=== PATIENT | male | born 1940 | race Caucasian/White ===

== ENCOUNTER 2021-09-24 20:43 | Emergency (ER) | payer MEDICARE ==
[2021-09-24] MEDS ORDERED: TYLENOL 325 MG PO STA (20:57)
[2021-09-24] MEDS ORDERED: Sodium Chloride 0.9% 1000 ML 1,000 ML IV STA (20:57)
[2021-09-24] MEDS ORDERED: Sodium Chloride 0.9% 1000 ML 1,000 ML ONE (21:06)
[2021-09-24] MEDS ORDERED: TYLENOL 325 MG ONE (21:06)
--- NOTE | 2021-09-24 21:08 | ERPHSYRPT ---
- History of Present Illness Time Seen by Provider: 09/24/21 21:05 Source: patient, family Exam Limitations: physical impairment Patient Subjective Stated Complaint: states "He has been confused for the past 3 days and he has been having chills. He says he has been dizzy too." Triage Nursing Assessment: Pt ambulatory to bed by self, pt alert to self and place only, pt is confused and unable to my questions my questions d/t confusion. is answering most questions, pt is febrile with a temperature of 100.7, says pt has been having chills but unknown of having fevers at home, pt's other vitals wnl, pt skin color flushed Physician History: states "He has been confused for the past 3 days and he has been having chills. He says he has been dizzy too." pt is confused and unable to my questions my questions d/t confusion. is answering most questions, pt is febrile with a temperature of 100.7, says pt has been having chills but unknown of having fevers at home Timing/Duration: day(s) (3 days) Severity: moderate Associated Symptoms: chills, fever, malaise, weakness Allergies/Adverse Reactions: No Known Drug Allergies Allergy (Verified 09/24/21 20:49) Home Medications: Lisinopril/Hydrochlorothiazide [Lisinopril-Hctz 10-12.5 mg Tab] 1 tab PO DAILY 09/24/21 [History] Travel Risk - International Travel Have you traveled outside of the country in past 3 weeks: No - Coronavirus Screening Are you exhibiting any of the following symptoms?: Yes Symptoms: Fever Close contact with a COVID-19 positive Pt in past 14-21 Days: No - Vaccine Status Have you recieved a Covid-19 vaccination: No - Review of Systems Constitutional: Fever, Chills, Lethargy, Malaise, Weakness Eyes: No Symptoms Ears, Nose, & Throat: No Symptoms Respiratory: No Cough, No Dyspnea Cardiac: No Chest Pain, No Edema, No Syncope Abdominal/Gastrointestinal: No Abdominal Pain, No Nausea, No Vomiting, No Diarrhea Genitourinary Symptoms: No Dysuria Musculoskeletal: No Back Pain, No Neck Pain Skin: No Rash Neurological: No Dizziness, No Focal Weakness, No Sensory Changes Psychological: No Symptoms Endocrine: No Symptoms All Other Systems: Reviewed and Negative - Past Medical History Pertinent Past Medical History: Yes Neurological History: No Pertinent History ENT History: No Pertinent History Cardiac History: Hypertension Respiratory History: No Pertinent History Endocrine Medical History: No Pertinent History Musculoskeletal History: No Pertinent History GI Medical History: No Pertinent History History: No Pertinent History Psycho-Social History: No Pertinent History Male Reproductive Disorders: No Pertinent History - Past Surgical History Past Surgical History: Yes Neuro Surgical History: No Pertinent History Cardiac: No Pertinent History Respiratory: No Pertinent History Gastrointestinal: No Pertinent History Genitourinary: No Pertinent History Musculoskeletal: Orthopedic Surgery Male Surgical History: No Pertinent History Other Surgical History: foot surgery - Social History Smoking Status: Former smoker Exposure to second hand smoke: No Drug Use: none Patient Lives Alone: No - Nursing Vital Signs Nursing Vital Signs: Initial Vital Signs Temperature 100.7 F 09/24/21 20:51 Pulse Rate 95 H 09/24/21 20:51 Respiratory Rate 18 09/24/21 20:51 Blood Pressure 136/79 09/24/21 20:51 O2 Sat by Pulse Oximetry 93 L 09/24/21 20:51 Pain Scale Pain Intensity 0 - Physical Exam General Appearance: mild distress, alert Eye Exam: PERRL/EOMI, eyes nml inspection Ears, Nose, Throat Exam: normal ENT inspection, TMs normal, pharynx normal, moist mucous membranes Neck Exam: normal inspection, non-tender, supple, full range of motion Respiratory Exam: normal breath sounds, lungs clear, No respiratory distress Cardiovascular Exam: regular rate/rhythm, normal heart sounds, normal peripheral pulses Gastrointestinal/Abdomen Exam: soft, normal bowel sounds, No tenderness, No mass Back Exam: normal inspection, normal range of motion, No CVA tenderness, No vertebral tenderness Extremity Exam: normal inspection, normal range of motion, pelvis stable Neurologic Exam: alert, oriented x 3, cooperative, normal mood/affect, sensation nml, No motor deficits Skin Exam: normal color, warm, dry, No rash Lymphatic Exam: No adenopathy SpO2 Interpretation: borderline oxygenation SpO2: 93 O2 Delivery: Room Air - Course Nursing assessment & vital signs reviewed: Yes - Radiology Exams Chest X-ray Interpretation: Reviewed by me, Negative - CT Exams Head CT Interpretation: Tele-radiologist Report, No/Intracranial Hemorrhag Ordered Tests: Active Orders 24 hr Category Date Time Status EKG-ER Only STAT Care 09/24/21 20:57 Active CHEST 2 VIEWS (PA AND LAT) Stat Exams 09/24/21 21:32 Taken HEAD WITHOUT CONTRAST [CT] Stat Exams 09/24/21 21:32 Taken CBC W DIFF Stat Lab 09/24/21 21:10 Completed CMP Stat Lab 09/24/21 21:10 Completed CULTURE,URINE Stat Lab 09/24/21 21:10 Received UA W/RFX CULTURE Stat Lab 09/24/21 21:10 Completed Medication Summary Discontinued Medications Generic Name Dose Route Start Last Admin Trade Name Angie PRN Reason Stop Dose Admin Acetaminophen 975 mg 09/24/21 20:57 09/24/21 21:07 Acetaminophen 325 Mg Tablet PO 09/24/21 20:58 975 mg STAT STA Administration Acetaminophen Confirm 09/24/21 21:06 Acetaminophen 325 Mg Tablet Administered 09/24/21 21:07 Dose 975 mg .ROUTE .STK-MED ONE Sodium Chloride 1,000 mls @ 999 mls/hr 09/24/21 20:57 09/24/21 22:07 Sodium Chloride 0.9% 1000 Ml IV 09/24/21 21:57 Infused .Q1H1M STA Infusion Sodium Chloride Confirm 09/24/21 21:06 Sodium Chloride 0.9% 1000 Ml Administered 09/24/21 21:07 Dose 1,000 mls @ ud .ROUTE .STK-MED ONE Ceftriaxone Sodium/Dextrose 1 g in 50 mls @ 100 mls/hr 09/24/21 21:44 09/24/21 22:20 Rocephin 1 Gm-D5w 50 Ml Bag IV 09/24/21 22:13 Infused STAT STA Infusion Ceftriaxone Sodium/Dextrose Confirm 09/24/21 21:50 Rocephin 1 Gm-D5w 50 Ml Bag Administered 09/24/21 21:51 Dose 1 g in 50 mls @ ud IV .STK-MED ONE Lab/Rad Data: Laboratory Result Diagrams 09/24/21 21:10 09/24/21 21:10 Laboratory Results 09/24/21 09/24/21 09/24/21 Range/Units 21:10 21:10 21:10 WBC 10.1 (4.0-10.5) x10^3/uL RBC 4.30 (4.1-5.6) x10^6/uL Hgb 13.3 (12.5-18.0) g/dL Hct 40.1 L (42-50) % MCV 93.3 (78-100) fL MCH 30.9 (26-32) pg MCHC 33.2 (32-36) g/dL RDW 12.7 (11.5-14.0) % Plt Count 160 (150-450) x10^3/uL MPV 9.5 (7.5-11.0) fL Gran % 80.6 H (36.0-66.0) % Immature Gran % (Auto) 0.3 (0.00-0.4) % Nucleat RBC Rel Count 0.0 (0.00-0.1) % Eos # (Auto) 0.03 (0-0.5) x10^3/uL Immature Gran # (Auto) 0.03 (0.00-0.03) x10^3u/L Absolute Lymphs (auto) 1.16 (1.0-4.6) x10^3/uL Absolute Monos (auto) 0.73 (0.0-1.3) x10^3/uL Absolute Nucleated RBC 0.00 (0.00-0.01) x10^3u/L Lymphocytes % 11.5 L (24.0-44.0) % Monocytes % 7.2 (0.0-12.0) % Eosinophils % 0.3 (0.00-5.0) % Basophils % 0.1 (0.0-0.4) % Absolute Granulocytes 8.13 H (1.4-6.9) x10^3/uL Basophils # 0.01 (0-0.4) x10^3/uL Sodium 132 L (137-145) mmol/L Potassium 4.2 (3.5-5.1) mmol/L Chloride 96 L (98-107) mmol/L Carbon Dioxide 29 (22-30) mmol/L Anion Gap 11.6 (5-15) MEQ/L BUN 27 H (9-20) mg/dL Creatinine 1.23 (0.66-1.25) mg/dL Estimated GFR > 60.0 ML/MIN Glucose 122 H (74-106) mg/dL Calcium 8.8 (8.4-10.2) mg/dL Total Bilirubin 0.80 (0.2-1.3) mg/dL AST 26 (17-59) U/L ALT 23 (0-50) U/L Alkaline Phosphatase 90 (38-126) U/L Serum Total Protein 6.9 (6.3-8.2) g/dL Albumin 3.8 (3.5-5.0) g/dL Urinalys Dipstick Clnc MAIN LAB Urine Color YELLOW (YELLOW) Urine Appearance CLEAR (CLEAR) Urine pH 5.5 (5-6) Ur Specific [place] 1.020 (1.005-1.025) POC Urine Protein Conf NEGATIVE (Negative) Urine Ketones NEGATIVE (NEGATIVE) Urine Nitrite NEGATIVE (NEGATIVE) Urine Bilirubin NEGATIVE (NEGATIVE) Urine Urobilinogen 2 (0-1) mg/dL Urine Leukocytes SMALL (NEGATIVE) Urine WBC (Auto) 16-25 (0-5) /HPF Urine RBC (Auto) 3-5 (0-2) /HPF U Epithel Cells (Auto) NONE (FEW) /HPF Urine Bacteria (Auto) NONE SEEN (NEGATIVE) /HPF Urine RBC NEGATIVE (0-5) [place] Urine Mucus (Auto) SLIGHT (NEGATIVE) /HPF Ur Culture Indicated? YES Urine Glucose NEGATIVE (NEGATIVE) mg/dL - Progress Progress: improved Counseled pt/family regarding: lab results, diagnosis, need for follow-up, rad results - Departure Departure Disposition: Home Clinical Impression: Urinary tract infection Qualifiers: Urinary tract infection type: acute cystitis Hematuria presence: without hematuria Qualified Code(s): N30.00 - Acute cystitis without hematuria Fever Qualifiers: Fever type: unspecified Qualified Code(s): R50.9 - Fever, unspecified Condition: Stable Critical Care Time: No Referrals: FAINA BALLESTEROS MD [Primary Care Provider] - Follow up/PCP as directed Instructions: Urinary Tract Infections in Adults, Delirium (Confusion) (DC), Dementia (DC) Additional Instructions: Discharge/Care Plan ARELI CANO was seen on 09/24/21 in the Emergency Room. The patient was counseled regarding Diagnosis,Lab results, Imaging studies, need for follow up and when to return to the Emergency Room. Prescriptions given: Discharge Note I have spoken with the patient and/or caregivers. I have explained the patient's condition, diagnosis and treatment plan based on the information available to me at this time. I have answered the patient's and/or caregiver's questions and addressed any concerns. The patient and/or caregivers have as good understanding of the patient's diagnosis, condition and treatment plan as can be expected at this point. The vital signs have been stable. The patient's condition is stable and appropriate for discharge from the emergency department. The patient will pursue further outpatient evaluation with the primary care physician or other designated or consulting physician as outlined in the discharge instructions. The patient and/or caregivers are agreeable to this plan of care and follow-up instructions have been explained in detail. The patient and/or caregivers have received these instruction. The patient/and or caregivers are aware that any significant change in condition or worsening of symptoms should prompt an immediate return to this or the closest emergency department or call 911. ARELI CANO was seen on 09/24/21 n the Emergency Room. At that time you were treated for an emergent condition, during your visit Laboratory, Radiology and/or other procedures may have been ordered. It is very important that you follow-up with your Primary Care Physician FAINA BALLESTEROS within the next 24-48 hours to review your Emergency Room visit and the final results of testing that was ordered. Some test results such as Urine Cultures, Blood Cultures, and other cultures if ordered will not be finalized for 24-48 hours. If you do not have a Primary Care Provider please call the medical records department at [phone] to obtain a copy of your results or you may sign into our patient portal to obtain these results by visiting us @ [email or web address] and completing the following steps: 1. Click on the Patient Portal link 2. Click the Patient Self Enrollment Link to complete the enrollment form and entering your 3. Once the enrollment form is completed you will receive an email with a temporary ID and password at the email address you provided. 4. Next choose a user name and password. Your user name must be at least 4 characters long and your password must be at least 4 characters long. 5. Choose a security question from the list and provide your answer to the question. If you already have signed into the Health Portal you may access your Health Care Information 23/10 by the following steps: 1. Login to our website @ [email or web address] 2. Enter your original user name and password. FAQS The [facility] Health Portal is an online tool that contains your Lab Results, Radiology Reports, Visit History, Discharge Instructions and Health Summary Lab and Radiology Results will not be available for 72 hours on the portal. The Portal is a secure site, passwords are encryted and URLs are re-written so they cannot be copied and pasted. You and authorized family members are the only ones who can access your Portal. Also there is a timeout feature that protects your information if you leave the Portal page open. If you have technical difficulty please use the Contact Us link on the page this will allow you to submit any questions you have regarding the Portal or you may contact the Medical Record Department at [phone] ext [phone]. Prescriptions: Ciprofloxacin [Cipro 500 MG] 500 mg PO BID #15 tablet
[2021-09-24 21:15] LABS: Absolute Neutrophil Ct (ANC) 8.13 x10^3/uL (1.4-6.9); Basophil (Absolute #) 0.01 x10^3/uL (0-0.4); Eosinophil % 0.3 % (0.00-5.0); Eosinophil (Absolute #) 0.03 x10^3/uL (0-0.5); Hematocrit 40.1 % (42-50); Hemoglobin 13.3 g/dL (12.5-18.0); Lymphocyte (Absolute #) 1.16 x10^3/uL (1.0-4.6); Lymphocytes % 11.5 % (24.0-44.0); Mean Cell Volume 93.3 fL (78-100); Mean Corpuscular Hemoglobin 30.9 pg (26-32); Mean Corpuscular Hgb Concent. 33.2 g/dL (32-36); Mean Platelet Volume 9.5 fL (7.5-11.0); Monocyte (Absolute #) 0.73 x10^3/uL (0.0-1.3); Monocytes % 7.2 % (0.0-12.0); Neutrophil % 80.6 % (36.0-66.0); Platelet Count 160 x10^3/uL (150-450); Red Cell Distribution Width 12.7 % (11.5-14.0); White Blood Count 10.1 x10^3/uL (4.0-10.5)
[2021-09-24 21:27] LABS: ALBUMIN 3.8 g/dL (3.5-5.0); ALKALINE PHOSPHATASE 90 U/L (38-126); ANION GAP 11.6 MEQ/L (5-15); BLOOD UREA NITROGEN 27 mg/dL (9-20); CHLORIDE 96 mmol/L (98-107); Calcium 8.8 mg/dL (8.4-10.2); Carbon Dioxide 29 mmol/L (22-30); Creatinine 1 1.23 mg/dL (0.66-1.25); EST GLOMERULAR FILTRATION RATE > 60.0 ML/MIN; Glucose 122 mg/dL (74-106); Potassium 4.2 mmol/L (3.5-5.1); SGOT/AST 26 U/L (17-59); SGPT/ALT 23 U/L (0-50); SODIUM 132 mmol/L (137-145); Total Protein 6.9 g/dL (6.3-8.2)
[2021-09-24] MEDS ORDERED: ROCEPHIN 1 Gm-D5w 50 ml Bag** 1 G/50 ML IVPB IV STA (21:44)
[2021-09-24] MEDS ORDERED: ROCEPHIN 1 Gm-D5w 50 ml Bag** 1 G/50 ML IVPB IV ONE (21:50)
[2021-09-24 21:58] LABS: Mucus SLIGHT /HPF (NEGATIVE)
[2021-09-24 21:59] LABS: Appearance CLEAR (CLEAR); Bilirubin NEGATIVE (NEGATIVE); Dipstick done @ ? MAIN LAB; Glucose NEGATIVE (NEGATIVE); Ketones NEGATIVE (NEGATIVE); Nitrite NEGATIVE (NEGATIVE); Ph 5.5 (5-6); Protein,Urine Dip NEGATIVE (Negative); RBC NEGATIVE Ery/ul (0-5); Urobilinogen 2 mg/dL (0-1)
[2021-09-24 22:00] LABS: Bacteria NONE SEEN /HPF (NEGATIVE); Urine Cultured Indicated? YES
[2021-09-24 22:11] VITALS: BP 111/84
[2021-09-24 22:34] LABS: INFLUENZA A NEGATIVE (NEGATIVE); INFLUENZA B NEGATIVE (NEGATIVE); RESPIRATORY SYNCTIAL VIRUS NEGATIVE (Negative); SARS-CoV-2 Xpert Express NEGATIVE (NEGATIVE)
[2021-09-24 22:45] VITALS: PULSE 69; O2SAT 95
--- NOTE | 2021-09-25 07:21 | XRAY ---
Indication: Confusion. Fever and cough. Multiple contiguous axial images obtained through the head without contrast. Comparison: October 15, 2012. Progressive age-appropriate global atrophy with moderate periventricular degenerative micro-ischemia bilaterally. No acute intracranial hemorrhage, abnormal extra-axial fluid collection, or mass effect. Fourth ventricle is midline without hydrocephalus. Bony calvarium intact. Visualized paranasal sinuses and mastoid air cells are clear. Impression: Nonacute senile brain. Comment: Preliminary interpretation made by [facility]. No critical discrepancy.
--- NOTE | 2021-09-25 07:21 | XRAY ---
Indication: Fever and cough. Comparison: None PA/lateral chest hyperinflated and clear. Heart not enlarged with mild arteriosclerotic and tortuous descending aorta. Bony thorax intact with osteopenia, mild degenerative changes, and mild scoliosis. Impression: Nonacute chest with chronic features.
== END 2021-09-24 22:56 | disposition home or self-care (01) ==
LOC: ED 20:43
DX: N30.00 Acute cystitis without hematuria (principal); R50.9 Fever, unspecified; R41.0 Disorientation, unspecified; R42 Dizziness and giddiness; I10 Essential (primary) hypertension; Z79.899 Other long term (current) drug therapy; Z28.310 Unvaccinated for COVID-19
CPT/HCPCS: 0241U; 36000; 36415; 70450; 71046; 80053; 81015; 85025; 87086; 93005; 96360; 96365; 99285; J0696; A9270-GY

== ENCOUNTER 2022-09-19 19:26 | Emergency (ER) | payer MEDICARE ==
[2022-09-19 20:30] LABS: Appearance Clear (Clear); Bacteria None Seen /HPF (None Seen); Bilirubin Negative (Negative); Blood Negative (Negative); Epithelial Cells None Seen /HPF (None Seen); Glucose, Urine Negative (Negative); Hyaline Casts NONE SEEN /LPF (0-2); Ketones Negative (Negative); Leukocyte Esterase Large (Negative); Nitrite Negative (Negative); Protein,Urine Dip Negative (Negative); RBC 0-2 /HPF (0-5); Specific Gravity <=1.005 (1.005-1.030); WBC 21-50 /HPF (0-5)
--- NOTE | 2022-09-19 20:40 | ERPHSYRPT ---
- History of Present Illness Time Seen by Provider: 09/19/22 20:35 Source: patient Exam Limitations: no limitations Patient Subjective Stated Complaint: daughter states that pt has fell twice today. daughter states pt was sweaty today. daughter states pt has ate very little today. Triage Nursing Assessment: pt ambulated into the er; pt is axo x1; c/o fall; pt denies pain; no abnormal gait present; clear lung sounds in all lobes; clear heart tone; pupils 2 mm and PERRL; blood glucose on arrival was 118; skin PDW; no respiratory distress present; strong conor student recruiter and pushes; vitals wnl Physician History: Patient is 81-year-old male with a history of dementia presents to our ED with his daughter for evaluation of confusion. RN reports patient fell. Patient denies. Patient states he stumbled. No fall. No injury. No BHT or LOC. No neck pain. Cervical spine cleared clinically. Patient states his p.o. has de creased. Daughter states patient appears somewhat confused. No focal or lateralizing symptoms. Daughter states patient has had a UTI in the past and wants to know whether or not he has another cause of the confusion. Symptoms are constant. Symptoms are moderate in intensity. No specific worsening or improving factors. Daughter voices no other complaints or concerns at this time. Daughter served as independent historian Timing/Duration: today Severity: moderate Modifying Factors: Improves With: nothing Associated Symptoms: denies symptoms Allergies/Adverse Reactions: Penicillins Allergy (Verified 09/19/22 19:42) Tightness of Throat Home Medications: Lisinopril/Hydrochlorothiazide [Lisinopril-Hctz 10-12.5 mg Tab] 1 tab PO DAILY 09/24/21 [History] Donepezil HCl 10 mg [Aricept 10 MG] 10 mg PO HS 09/19/22 [History] Memantine HCl 10 mg PO BID 09/19/22 [History] Trazodone HCl 100 mg PO HS 09/19/22 [History] Hx Tetanus, Diphtheria Vaccination/Date Given: No Hx Influenza Vaccination/Date Given: No Hx Pneumococcal Vaccination/Date Given: No Travel Risk - International Travel Have you traveled outside of the country in past 3 weeks: No - Coronavirus Screening Are you exhibiting any of the following symptoms?: No Close contact with a COVID-19 positive Pt in past 14-21 Days: No - Vaccine Status Have you recieved a Covid-19 vaccination: No - Review of Systems Constitutional: No Symptoms, No Fever, No Chills Eyes: No Symptoms Ears, Nose, & Throat: No Symptoms Respiratory: No Symptoms, No Cough, No Dyspnea Cardiac: No Symptoms, No Chest Pain, No Edema, No Syncope Abdominal/Gastrointestinal: No Symptoms, No Abdominal Pain, No Nausea, No Vomiting, No Diarrhea Genitourinary Symptoms: No Symptoms, No Dysuria Musculoskeletal: No Symptoms, No Back Pain, No Neck Pain Skin: No Symptoms, No Rash Neurological: No Symptoms, No Dizziness, No Focal Weakness, No Sensory Changes Psychological: No Symptoms Endocrine: No Symptoms Hematologic/Lymphatic: No Symptoms Immunological/Allergic: No Symptoms All Other Systems: Reviewed and Negative - Past Medical History Pertinent Past Medical History: Yes Neurological History: Dementia ENT History: No Pertinent History Cardiac History: Hypertension Respiratory History: No Pertinent History Endocrine Medical History: No Pertinent History Musculoskeletal History: No Pertinent History GI Medical History: No Pertinent History History: No Pertinent History Psycho-Social History: No Pertinent History Male Reproductive Disorders: No Pertinent History - Past Surgical History Past Surgical History: Yes Neuro Surgical History: No Pertinent History Cardiac: No Pertinent History Respiratory: No Pertinent History Gastrointestinal: No Pertinent History Genitourinary: No Pertinent History Musculoskeletal: Orthopedic Surgery Male Surgical History: No Pertinent History Other Surgical History: foot surgery - Social History Smoking Status: Former smoker Exposure to second hand smoke: No Drug Use: none Patient Lives Alone: No - Nursing Vital Signs Nursing Vital Signs: Initial Vital Signs Temperature 98.2 F 09/19/22 19:44 Pulse Rate 75 09/19/22 19:44 Respiratory Rate 16 09/19/22 19:44 Blood Pressure 124/69 09/19/22 19:44 O2 Sat by Pulse Oximetry 98 09/19/22 19:44 Pain Scale Pain Intensity 0 - Physical Exam General Appearance: no apparent distress, alert Eye Exam: PERRL/EOMI, eyes nml inspection Ears, Nose, Throat Exam: normal ENT inspection, TMs normal, pharynx normal, moist mucous membranes Neck Exam: normal inspection, non-tender, supple, full range of motion Respiratory Exam: normal breath sounds, lungs clear, airway intact, No respiratory distress Cardiovascular Exam: regular rate/rhythm, normal heart sounds, normal peripheral pulses Gastrointestinal/Abdomen Exam: soft, normal bowel sounds, No tenderness, No mass Back Exam: normal inspection, normal range of motion, No CVA tenderness, No vertebral tenderness Extremity Exam: normal inspection, normal range of motion, pelvis stable Neurologic Exam: alert, cooperative, normal mood/affect, sensation nml, No motor deficits Skin Exam: normal color, warm, dry, No rash Lymphatic Exam: No adenopathy SpO2 Interpretation: normal SpO2: 99 O2 Delivery: Room Air - Course Nursing assessment & vital signs reviewed: Yes - CT Exams Head CT Interpretation: Tele-radiologist Report (Nonacute senile brain.) Ordered Tests: Active Orders 24 hr Category Date Time Status IV Insertion STAT Care 09/19/22 20:33 Active POCT Glucose Check STAT Care 09/19/22 19:55 Active Pulse Oximetry (ED) STAT Care 09/19/22 20:33 Active HEAD WITHOUT CONTRAST [CT] Stat Exams 09/19/22 20:33 Taken CBC W DIFF Stat Lab 09/19/22 20:45 Completed CMP Stat Lab 09/19/22 20:45 Completed CULTURE,URINE Stat Lab 09/19/22 20:17 Received POCT GLUCOSE Stat Lab 09/19/22 19:50 Completed TROPONIN Q4H Lab 09/19/22 20:45 Completed TROPONIN Q4H Lab 09/20/22 00:45 Ordered TROPONIN Q4H Lab 09/20/22 04:45 Ordered UA W/RFX UR CULTURE Stat Lab 09/19/22 20:17 Completed Medication Summary Discontinued Medications Generic Name Dose Route Start Last Admin Trade Name Angie PRN Reason Stop Dose Admin Ciprofloxacin 500 mg 09/19/22 21:28 09/19/22 21:50 Ciprofloxacin 500 Mg Tablet PO 09/19/22 21:29 500 mg ONCE STA Administration Ciprofloxacin Confirm 09/19/22 21:50 Ciprofloxacin 500 Mg Tablet Administered 09/19/22 21:51 Dose 500 mg .ROUTE .[employer]-OnRequest Images ONE Lab/Rad Data: Laboratory Result Diagrams 09/19/22 20:45 09/19/22 20:45 Laboratory Results 09/19/22 09/19/22 09/19/22 Range/Units 20:45 20:45 20:45 WBC 7.4 (4.0-10.5) x10^3/uL RBC 4.28 (4.1-5.6) x10^6/uL Hgb 12.9 (12.5-18.0) g/dL Hct 39.3 L (42-50) % MCV 91.8 (78-100) fL MCH 30.1 (26-32) pg MCHC 32.8 (32-36) g/dL RDW 12.4 (11.5-14.0) % Plt Count 210 (150-450) x10^3/uL MPV 10.5 (7.5-11.0) fL Gran % 67.5 H (36.0-66.0) % Immature Gran % (Auto) 0.1 (0.00-0.4) % Nucleat RBC Rel Count 0.0 (0.00-0.1) % Eos # (Auto) 0.16 (0-0.5) x10^3/uL Immature Gran # (Auto) 0.01 (0.00-0.03) x10^3u/L Absolute Lymphs (auto) 1.73 (1.0-4.6) x10^3/uL Absolute Monos (auto) 0.48 (0.0-1.3) x10^3/uL Absolute Nucleated RBC 0.00 (0.00-0.01) x10^3u/L Lymphocytes % 23.3 L (24.0-44.0) % Monocytes % 6.5 (0.0-12.0) % Eosinophils % 2.2 (0.00-5.0) % Basophils % 0.4 (0.0-0.4) % Absolute Granulocytes 5.02 (1.4-6.9) x10^3/uL Basophils # 0.03 (0-0.4) x10^3/uL Sodium 138 (137-145) mmol/L Potassium 3.8 (3.5-5.1) mmol/L Chloride 102 (98-107) mmol/L Carbon Dioxide 26 (22-30) mmol/L Anion Gap 12.7 (5-15) MEQ/L BUN 24 H (9-20) mg/dL Creatinine 1.19 (0.66-1.25) mg/dL Estimated GFR > 60.0 ML/MIN Glucose 102 (74-106) mg/dL POC Glucometer (74 to 106) mg/dL Calcium 8.9 (8.4-10.2) mg/dL Total Bilirubin 0.80 (0.2-1.3) mg/dL AST 25 (17-59) U/L ALT 19 (0-50) U/L Alkaline Phosphatase 94 (38-126) U/L Troponin I < 0.012 (0.000-0.034) ng/mL Serum Total Protein 7.0 (6.3-8.2) g/dL Albumin 3.8 (3.5-5.0) g/dL Urine Color (Yellow) Urine Appearance (Clear) Urine pH (4.6-8.0) Ur Specific Magnolia (1.005-1.030) Urine Protein (Negative) Urine Glucose (UA) (Negative) mg/dL Urine Ketones (Negative) Urine Blood (Negative) Urine Nitrite (Negative) Urine Bilirubin (Negative) Urine Urobilinogen (0.2) mg/dL Ur Leukocyte Esterase (Negative) U Hyaline Cast (Auto) (0-2) /LPF Urine Microscopic RBC (0-5) /HPF Urine Microscopic WBC (0-5) /HPF Ur Epithelial Cells (None Seen) /HPF Urine Bacteria (None Seen) /HPF Urine Culture Reflexed (NO) 09/19/22 09/19/22 Range/Units 20:17 19:50 WBC (4.0-10.5) x10^3/uL RBC (4.1-5.6) x10^6/uL Hgb (12.5-18.0) g/dL Hct (42-50) % MCV (78-100) fL MCH (26-32) pg MCHC (32-36) g/dL RDW (11.5-14.0) % Plt Count (150-450) x10^3/uL MPV (7.5-11.0) fL Gran % (36.0-66.0) % Immature Gran % (Auto) (0.00-0.4) % Nucleat RBC Rel Count (0.00-0.1) % Eos # (Auto) (0-0.5) x10^3/uL Immature Gran # (Auto) (0.00-0.03) x10^3u/L Absolute Lymphs (auto) (1.0-4.6) x10^3/uL Absolute Monos (auto) (0.0-1.3) x10^3/uL Absolute Nucleated RBC (0.00-0.01) x10^3u/L Lymphocytes % (24.0-44.0) % Monocytes % (0.0-12.0) % Eosinophils % (0.00-5.0) % Basophils % (0.0-0.4) % Absolute Granulocytes (1.4-6.9) x10^3/uL Basophils # (0-0.4) x10^3/uL Sodium (137-145) mmol/L Potassium (3.5-5.1) mmol/L Chloride (98-107) mmol/L Carbon Dioxide (22-30) mmol/L Anion Gap (5-15) MEQ/L BUN (9-20) mg/dL Creatinine (0.66-1.25) mg/dL Estimated GFR ML/MIN Glucose (74-106) mg/dL POC Glucometer 118 H (74 to 106) mg/dL Calcium (8.4-10.2) mg/dL Total Bilirubin (0.2-1.3) mg/dL AST (17-59) U/L ALT (0-50) U/L Alkaline Phosphatase (38-126) U/L Troponin I (0.000-0.034) ng/mL Serum Total Protein (6.3-8.2) g/dL Albumin (3.5-5.0) g/dL Urine Color Yellow (Yellow) Urine Appearance Clear (Clear) Urine pH 6.0 (4.6-8.0) Ur Specific Magnolia <=1.005 (1.005-1.030) Urine Protein Negative (Negative) Urine Glucose (UA) Negative (Negative) mg/dL Urine Ketones Negative (Negative) Urine Blood Negative (Negative) Urine Nitrite Negative (Negative) Urine Bilirubin Negative (Negative) Urine Urobilinogen 1.0 A (0.2) mg/dL Ur Leukocyte Esterase Large A (Negative) U Hyaline Cast (Auto) NONE SEEN (0-2) /LPF Urine Microscopic RBC 0-2 (0-5) /HPF Urine Microscopic WBC 21-50 A (0-5) /HPF Ur Epithelial Cells None Seen (None Seen) /HPF Urine Bacteria None Seen (None Seen) /HPF Urine Culture Reflexed YES (NO) - Progress Progress: improved Progress Note: Patient is 81-year-old male presents to our ED with his daughter for evaluation of possible UTI. Daughter states patient tends to get a little confused when he has a UTI. She states this has happened in the past. Physical exam essentially nonremarkable. Patient has dementia. Patient functioning at his baseline. No other significant findings on physical exam. Test ordered include CT head which was negative for acute intracranial pathology. Nonacute seen brain observed. CBC within normal limits. CMP reveals slightly elevated BUN otherwise negative. Troponin negative. UA significant for urinary tract infection. Patient received a dose of Cipro in our ED. Patient is allergic to penicillin. A prescription for the same was forwarded to patient's pharmacy. Daughter agrees to follow-up with primary care doctor within 48 hours for reevaluation. Portions of this note were created with voice recognition technology. There may be grammatical, spelling, punctuation or sound alike errors Complexity of problem addressed is moderate acute complicated with systemic manifestations. Patient has a urinary tract infection that is manifesting with mild confusion superimposed on a baseline of dementia. Critical care time. Complexity of data reviewed and analyzed is moderate. Laboratory work-up ordered and analyzed by Dr. Ewing. Findings reveal a urinary tract infection which is likely contributing to patient's current symptomology. Labs otherwise negative. Vital stable. Risk of complication and or risk of morbidity/mortality of patient management is moderate. Patient received a dose of ciprofloxacin in our ED. A prescription for the same was forwarded to patient's pharmacy. Patient agrees to follow-up with primary care doctor within 48 hours for reevaluation. No social determinants of health present to impede follow-up. Daughter at bedside agrees with plan of care and will ensure the patient follows up accordingly. They voiced no other complaints or concerns at this time. Portions of this note were created with voice recognition technology. There may be grammatical, spelling, punctuation or sound alike errors 09/19/22 22:25 Counseled pt/family regarding: lab results, diagnosis, need for follow-up, rad results - Departure Departure Disposition: Home Clinical Impression: UTI (urinary tract infection) Condition: Stable Critical Care Time: No Referrals: FAINA BALLESTEROS MD [Primary Care Provider] - Follow up/PCP as directed Additional Instructions: Discharge/Care Plan ARELI CANO was seen on 09/19/22 in the Emergency Room. The patient was counseled regarding Diagnosis,Lab results, Imaging studies, need for follow up and when to return to the Emergency Room. Prescriptions given: Discharge Note I have spoken with the patient and/or caregivers. I have explained the patient's condition, diagnosis and treatment plan based on the information available to me at this time. I have answered the patient's and/or caregiver's questions and addressed any concerns. The patient and/or caregivers have as good understanding of the patient's diagnosis, condition and treatment plan as can be expected at this point. The vital signs have been stable. The patient's condition is stable and appropriate for discharge from the emergency department. The patient will pursue further outpatient evaluation with the primary care physician or other designated or consulting physician as outlined in the discharge instructions. The patient and/or caregivers are agreeable to this plan of care and follow-up instructions have been explained in detail. The patient and/or caregivers have received these instruction. The patient/and or caregivers are aware that any significant change in condition or worsening of symptoms should prompt an immediate return to this or the closest emergency department or call 911. Prescriptions: Ciprofloxacin [Cipro 500 MG] 500 mg PO BID #14 tablet
[2022-09-19 20:47] LABS: Absolute Neutrophil Ct (ANC) 5.02 x10^3/uL (1.4-6.9); BASOPHIL % 0.4 % (0.0-0.4); Basophil (Absolute #) 0.03 x10^3/uL (0-0.4); Eosinophil % 2.2 % (0.00-5.0); Eosinophil (Absolute #) 0.16 x10^3/uL (0-0.5); Hematocrit 39.3 % (42-50); Hemoglobin 12.9 g/dL (12.5-18.0); IMMATURE GRAN # 0.01 x10^3u/L (0.00-0.03); IMMATURE GRAN % 0.1 % (0.00-0.4); Lymphocyte (Absolute #) 1.73 x10^3/uL (1.0-4.6); Lymphocytes % 23.3 % (24.0-44.0); Mean Cell Volume 91.8 fL (78-100); Mean Corpuscular Hemoglobin 30.1 pg (26-32); Mean Corpuscular Hgb Concent. 32.8 g/dL (32-36); Mean Platelet Volume 10.5 fL (7.5-11.0); Monocyte (Absolute #) 0.48 x10^3/uL (0.0-1.3); Monocytes % 6.5 % (0.0-12.0); Neutrophil % 67.5 % (36.0-66.0); Platelet Count 210 x10^3/uL (150-450); Red Blood Count 4.28 x10^6/uL (4.1-5.6); Red Cell Distribution Width 12.4 % (11.5-14.0); White Blood Count 7.4 x10^3/uL (4.0-10.5)
[2022-09-19 20:48] LABS: ADD URINE CULTURE? YES (NO)
[2022-09-19 21:09] LABS: ALBUMIN 3.8 g/dL (3.5-5.0); ALKALINE PHOSPHATASE 94 U/L (38-126); ANION GAP 12.7 MEQ/L (5-15); BLOOD UREA NITROGEN 24 mg/dL (9-20); CHLORIDE 102 mmol/L (98-107); Calcium 8.9 mg/dL (8.4-10.2); Carbon Dioxide 26 mmol/L (22-30); Creatinine 1 1.19 mg/dL (0.66-1.25); EST GLOMERULAR FILTRATION RATE > 60.0 ML/MIN; Glucose 102 mg/dL (74-106); Potassium 3.8 mmol/L (3.5-5.1); SGOT/AST 25 U/L (17-59); SGPT/ALT 19 U/L (0-50); SODIUM 138 mmol/L (137-145)
[2022-09-19] MEDS ORDERED: Cipro 500 MG PO STA (21:28)
[2022-09-19] MEDS ORDERED: Cipro 500 MG ONE (21:50)
[2022-09-19 22:04] VITALS: BP 122/79; PULSE 66; O2SAT 99
--- NOTE | 2022-09-20 08:48 | XRAY ---
Indication: Confusion. Multiple contiguous axial images obtained through the head without contrast. Comparison: September 24, 2021 Again age-appropriate global atrophy and moderate periventricular degenerative micro-ischemia bilaterally. No acute intracranial hemorrhage, abnormal extra-axial fluid collection, or mass effect. Fourth ventricle is midline without hydrocephalus. Bony calvarium intact. Visualized paranasal sinuses and mastoid air cells are clear. Impression: Continued nonacute senile brain.
== END 2022-09-19 22:27 | disposition home or self-care (01) ==
LOC: ED 19:26
DX: N39.0 Urinary tract infection, site not specified (principal); F03.90 Unspecified dementia, unspecified severity, without behavioral disturbance, psychotic disturbance, mood disturbance, and anxiety; F05 Delirium due to known physiological condition; I10 Essential (primary) hypertension; Z79.899 Other long term (current) drug therapy; Z28.310 Unvaccinated for COVID-19
CPT/HCPCS: 36000; 36415; 70450; 80053; 81001; 82947; 84484; 85025; 87086; 94760; 99284; A9270-GY

== ENCOUNTER 2022-10-13 12:38 | Emergency (ER) | payer MEDICARE ==
[2022-10-13 13:10] VITALS: O2SAT 97
--- NOTE | 2022-10-13 13:29 | XRAY ---
Indication: Headache, loss of consciousness, and slurred speech. Multiple contiguous axial images obtained through the head without contrast. Comparison: September 19, 2022 Again age-appropriate global atrophy and moderate periventricular degenerative micro-ischemia. No acute intracranial hemorrhage, abnormal extra-axial fluid collection, or mass effect. Fourth ventricle is midline without hydrocephalus. Bony calvarium intact. Visualized paranasal sinuses and mastoid air cells are clear. Impression: Continued nonacute senile brain.
[2022-10-13 13:32] LABS: Absolute Neutrophil Ct (ANC) 5.23 x10^3/uL (1.4-6.9); BASOPHIL % 0.4 % (0.0-0.4); Basophil (Absolute #) 0.03 x10^3/uL (0-0.4); Eosinophil % 1.7 % (0.00-5.0); Eosinophil (Absolute #) 0.12 x10^3/uL (0-0.5); Hematocrit 37.1 % (42-50); Hemoglobin 12.1 g/dL (12.5-18.0); IMMATURE GRAN # 0.01 x10^3u/L (0.00-0.03); IMMATURE GRAN % 0.1 % (0.00-0.4); Lymphocyte (Absolute #) 1.31 x10^3/uL (1.0-4.6); Lymphocytes % 18.6 % (24.0-44.0); Mean Cell Volume 92.3 fL (78-100); Mean Corpuscular Hemoglobin 30.1 pg (26-32); Mean Corpuscular Hgb Concent. 32.6 g/dL (32-36); Mean Platelet Volume 10.8 fL (7.5-11.0); Monocyte (Absolute #) 0.33 x10^3/uL (0.0-1.3); Monocytes % 4.7 % (0.0-12.0); Neutrophil % 74.5 % (36.0-66.0); Platelet Count 195 x10^3/uL (150-450); Red Blood Count 4.02 x10^6/uL (4.1-5.6); Red Cell Distribution Width 12.4 % (11.5-14.0)
[2022-10-13 13:40] LABS: Erythrocyte Sedimentation Rate 10 mm/hr (0-15)
[2022-10-13 13:48] LABS: INR 1.06 (0.8-3.0); PROTIME 11.5 SECONDS (9.4-12.5)
[2022-10-13 13:49] LABS: ALBUMIN 3.6 g/dL (3.5-5.0); ANION GAP 10.3 MEQ/L (5-15); BILIRUBIN,TOTAL 0.9 mg/dL (0.2-1.3); Calcium 8.6 mg/dL (8.4-10.2); Creatinine 1 2.04 mg/dL (0.66-1.25); EST GLOMERULAR FILTRATION RATE 33.6 ML/MIN; Potassium 3.8 mmol/L (3.5-5.1); Total Protein 6.6 g/dL (6.3-8.2)
[2022-10-13 14:03] LABS: Appearance Clear (Clear); Bacteria None Seen /HPF (None Seen); Bilirubin Negative (Negative); Blood Negative (Negative); Epithelial Cells Rare /HPF (None Seen); Glucose, Urine Negative (Negative); Ketones Negative (Negative); Leukocyte Esterase Large (Negative); Nitrite Negative (Negative); Protein,Urine Dip Trace (Negative); RBC 0-2 /HPF (0-5); Specific Gravity 1.015 (1.005-1.030); WBC 21-50 /HPF (0-5)
[2022-10-13 14:04] LABS: ADD URINE CULTURE? YES (NO); Hyaline Casts 20-50 /LPF (0-2)
[2022-10-13 14:17] VITALS: BP 97/62; PULSE 70
[2022-10-13] MEDS: Sodium Chloride 0.9% 1000 ML 1,000 ML IV SCH ×2 (14:17→14:18)
--- NOTE | 2022-10-13 14:18 | ERPHSYRPT ---
- History of Present Illness Time Seen by Provider: 10/13/22 12:40 Patient Subjective Stated Complaint: Patient denies any pain or issues at this time; patient has dementia. at bedside and states patient c/o headache a few hours ago; patient does agree with on this statement. Triage Nursing Assessment: Patient brought back to ER in a W/C. He is anxious; speaking rapidly. No SOB. Denies current pain. Transfers from chair to bed with stand by assist without difficulties but has trouble following commands at times. Patient becoming agitated with while trying to obtain medical his tory. Physician History: Patient is an 82-year-old male who presents with a complaint of headache although he has severe dementia and is difficult to get a straight history from him the says that maybe his slurred speech was a little slurred but improved and that he acted like he was going to faint. The symptoms occurred 1 to 2 hours prior to arrival. Timing/Duration: today Severity: moderate Allergies/Adverse Reactions: Penicillins Allergy (Verified 10/13/22 12:58) Tightness of Throat Home Medications: Lisinopril/Hydrochlorothiazide [Lisinopril-Hctz 10-12.5 mg Tab] 1 tab PO DAILY 09/24/21 [History] Donepezil HCl 10 mg [Aricept 10 MG] 10 mg PO HS 09/19/22 [History] Memantine HCl 10 mg PO BID 09/19/22 [History] Trazodone HCl 100 mg PO HS 09/19/22 [History] Hx Tetanus, Diphtheria Vaccination/Date Given: No Hx Influenza Vaccination/Date Given: No Hx Pneumococcal Vaccination/Date Given: No Immunizations Up to Date: No Travel Risk - International Travel Have you traveled outside of the country in past 3 weeks: No - Coronavirus Screening Are you exhibiting any of the following symptoms?: Yes Symptoms: Headaches/Body Aches/Fatigue Close contact with a COVID-19 positive Pt in past 14-21 Days: No - Vaccine Status Have you recieved a Covid-19 vaccination: No - Review of Systems All Other Systems: Unable due to condition - Past Medical History Pertinent Past Medical History: Yes Neurological History: Dementia ENT History: No Pertinent History Cardiac History: Hypertension Respiratory History: No Pertinent History Endocrine Medical History: No Pertinent History Musculoskeletal History: No Pertinent History GI Medical History: No Pertinent History History: No Pertinent History Psycho-Social History: No Pertinent History Male Reproductive Disorders: No Pertinent History - Past Surgical History Past Surgical History: Yes Neuro Surgical History: No Pertinent History Cardiac: No Pertinent History Respiratory: No Pertinent History Gastrointestinal: No Pertinent History Genitourinary: No Pertinent History Musculoskeletal: Orthopedic Surgery Male Surgical History: No Pertinent History Other Surgical History: foot surgery - Social History Smoking Status: Never smoker Exposure to second hand smoke: No Drug Use: none Patient Lives Alone: No - Nursing Vital Signs Nursing Vital Signs: Initial Vital Signs Temperature 98.6 F 10/13/22 12:38 Pulse Rate 66 10/13/22 12:38 Respiratory Rate 17 10/13/22 12:38 Blood Pressure 98/53 10/13/22 12:38 O2 Sat by Pulse Oximetry 95 10/13/22 12:38 Pain Scale Pain Intensity 0 - Physical Exam General Appearance: no apparent distress, alert Eye Exam: PERRL/EOMI, eyes nml inspection Ears, Nose, Throat Exam: normal ENT inspection, TMs normal, pharynx normal, moist mucous membranes Neck Exam: normal inspection, non-tender, supple, full range of motion Respiratory Exam: normal breath sounds, lungs clear, No respiratory distress Cardiovascular Exam: regular rate/rhythm, normal heart sounds, normal peripheral pulses Gastrointestinal/Abdomen Exam: soft, normal bowel sounds, No tenderness, No mass Back Exam: normal inspection, normal range of motion, No CVA tenderness, No vertebral tenderness Extremity Exam: normal inspection, normal range of motion, pelvis stable Neurologic Exam: alert, cooperative, disoriented, confusion, No motor deficits Skin Exam: normal color, warm, dry, No rash Lymphatic Exam: No adenopathy SpO2 Interpretation: normal SpO2: 97 O2 Delivery: Room Air - Course Nursing assessment & vital signs reviewed: Yes - CT Exams Head CT Interpretation: Other (No acute changes) Ordered Tests: Active Orders 24 hr Category Date Time Status EKG-ER Only STAT Care 10/13/22 12:57 Active IV Insertion STAT Care 10/13/22 12:55 Active HEAD WITHOUT CONTRAST [CT] Stat Exams 10/13/22 12:56 Completed CBC W DIFF Stat Lab 10/13/22 13:30 Completed CMP Stat Lab 10/13/22 13:30 Completed CULTURE,URINE Stat Lab 10/13/22 13:57 Received Erythrocyte Sedimentation Rate Stat Lab 10/13/22 13:30 Completed Lactic Acid Urgent Lab 10/13/22 13:42 Completed PROTIME WITH INR Stat Lab 10/13/22 13:30 Completed TROPONIN Q4H Lab 10/13/22 13:30 Completed TROPONIN Q4H Lab 10/13/22 17:00 Ordered TROPONIN Q4H Lab 10/13/22 21:00 Ordered UA W/RFX UR CULTURE Stat Lab 10/13/22 13:57 Completed Medication Summary Generic Name Dose Route Start Last Admin Trade Name Angie PRN Reason Stop Dose Admin Sodium Chloride 1,000 mls @ 100 mls/hr 10/13/22 13:00 Sodium Chloride 0.9% 1000 Ml IV 11/12/22 12:59 .Q10H [id number] Lab/Rad Data: Laboratory Result Diagrams 10/13/22 13:30 10/13/22 13:30 Laboratory Results 10/13/22 10/13/22 10/13/22 Range/Units 13:57 13:42 13:30 WBC (4.0-10.5) x10^3/uL RBC (4.1-5.6) x10^6/uL Hgb (12.5-18.0) g/dL Hct (42-50) % MCV (78-100) fL MCH (26-32) pg MCHC (32-36) g/dL RDW (11.5-14.0) % Plt Count (150-450) x10^3/uL MPV (7.5-11.0) fL Gran % (36.0-66.0) % Immature Gran % (Auto) (0.00-0.4) % Nucleat RBC Rel Count (0.00-0.1) % Eos # (Auto) (0-0.5) x10^3/uL Immature Gran # (Auto) (0.00-0.03) x10^3u/L Absolute Lymphs (auto) (1.0-4.6) x10^3/uL Absolute Monos (auto) (0.0-1.3) x10^3/uL Absolute Nucleated RBC (0.00-0.01) x10^3u/L Lymphocytes % (24.0-44.0) % Monocytes % (0.0-12.0) % Eosinophils % (0.00-5.0) % Basophils % (0.0-0.4) % Absolute Granulocytes (1.4-6.9) x10^3/uL Basophils # (0-0.4) x10^3/uL ESR (0-15) mm/hr PT (9.4-12.5) SECONDS INR (0.8-3.0) Sodium (137-145) mmol/L Potassium (3.5-5.1) mmol/L Chloride (98-107) mmol/L Carbon Dioxide (22-30) mmol/L Anion Gap (5-15) MEQ/L BUN (9-20) mg/dL Creatinine (0.66-1.25) mg/dL Estimated GFR ML/MIN Glucose (74-106) mg/dL Lactic Acid 1.5 (0.4-2.0) Calcium (8.4-10.2) mg/dL Total Bilirubin (0.2-1.3) mg/dL AST (17-59) U/L ALT (0-50) U/L Alkaline Phosphatase (38-126) U/L Troponin I < 0.012 (0.000-0.034) ng/mL Serum Total Protein (6.3-8.2) g/dL Albumin (3.5-5.0) g/dL Urine Color Yellow (Yellow) Urine Appearance Clear (Clear) Urine pH 5.0 (4.6-8.0) Ur Specific [place] 1.015 (1.005-1.030) Urine Protein Trace A (Negative) Urine Glucose (UA) Negative (Negative) mg/dL Urine Ketones Negative (Negative) Urine Blood Negative (Negative) Urine Nitrite Negative (Negative) Urine Bilirubin Negative (Negative) Urine Urobilinogen 1.0 A (0.2) mg/dL Ur Leukocyte Esterase Large A (Negative) U Hyaline Cast (Auto) 20-50 (0-2) /LPF Urine Microscopic RBC 0-2 (0-5) /HPF Urine Microscopic WBC 21-50 A (0-5) /HPF Ur Epithelial Cells Rare (None Seen) /HPF Urine Bacteria None Seen (None Seen) /HPF Urine Culture Reflexed YES (NO) 10/13/22 10/13/22 10/13/22 Range/Units 13:30 13:30 13:30 WBC 7.0 (4.0-10.5) x10^3/uL RBC 4.02 L (4.1-5.6) x10^6/uL Hgb 12.1 L (12.5-18.0) g/dL Hct 37.1 L (42-50) % MCV 92.3 (78-100) fL MCH 30.1 (26-32) pg MCHC 32.6 (32-36) g/dL RDW 12.4 (11.5-14.0) % Plt Count 195 (150-450) x10^3/uL MPV 10.8 (7.5-11.0) fL Gran % 74.5 H (36.0-66.0) % Immature Gran % (Auto) 0.1 (0.00-0.4) % Nucleat RBC Rel Count 0.0 (0.00-0.1) % Eos # (Auto) 0.12 (0-0.5) x10^3/uL Immature Gran # (Auto) 0.01 (0.00-0.03) x10^3u/L Absolute Lymphs (auto) 1.31 (1.0-4.6) x10^3/uL Absolute Monos (auto) 0.33 (0.0-1.3) x10^3/uL Absolute Nucleated RBC 0.00 (0.00-0.01) x10^3u/L Lymphocytes % 18.6 L (24.0-44.0) % Monocytes % 4.7 (0.0-12.0) % Eosinophils % 1.7 (0.00-5.0) % Basophils % 0.4 (0.0-0.4) % Absolute Granulocytes 5.23 (1.4-6.9) x10^3/uL Basophils # 0.03 (0-0.4) x10^3/uL ESR 10 (0-15) mm/hr PT 11.5 (9.4-12.5) SECONDS INR 1.06 (0.8-3.0) Sodium 139 (137-145) mmol/L Potassium 3.8 (3.5-5.1) mmol/L Chloride 104 (98-107) mmol/L Carbon Dioxide 28 (22-30) mmol/L Anion Gap 10.3 (5-15) MEQ/L BUN 25 H (9-20) mg/dL Creatinine 2.04 H (0.66-1.25) mg/dL Estimated GFR 33.6 ML/MIN Glucose 140 H (74-106) mg/dL Lactic Acid (0.4-2.0) Calcium 8.6 (8.4-10.2) mg/dL Total Bilirubin 0.90 (0.2-1.3) mg/dL AST 19 (17-59) U/L ALT 19 (0-50) U/L Alkaline Phosphatase 72 (38-126) U/L Troponin I (0.000-0.034) ng/mL Serum Total Protein 6.6 (6.3-8.2) g/dL Albumin 3.6 (3.5-5.0) g/dL Urine Color (Yellow) Urine Appearance (Clear) Urine pH (4.6-8.0) Ur Specific [place] (1.005-1.030) Urine Protein (Negative) Urine Glucose (UA) (Negative) mg/dL Urine Ketones (Negative) Urine Blood (Negative) Urine Nitrite (Negative) Urine Bilirubin (Negative) Urine Urobilinogen (0.2) mg/dL Ur Leukocyte Esterase (Negative) U Hyaline Cast (Auto) (0-2) /LPF Urine Microscopic RBC (0-5) /HPF Urine Microscopic WBC (0-5) /HPF Ur Epithelial Cells (None Seen) /HPF Urine Bacteria (None Seen) /HPF Urine Culture Reflexed (NO) - Progress Progress: unchanged Medical Desision Making - Diagnostic Testing Diagnostic test were ordered, analyzed, and reviewed by me: Yes Radiological Interpretation: Reviewed by me - Departure Departure Disposition: Home Clinical Impression: Urinary tract infection Condition: Stable Critical Care Time: No Referrals: FAINA BALLESTEROS MD [Primary Care Provider] - Follow up/PCP as directed Instructions: Urinary Tract Infection, Adult (DC) Prescriptions: Ciprofloxacin [Cipro 500 MG] 500 mg PO BID #20 tablet
== END 2022-10-13 14:23 | disposition home or self-care (01) ==
LOC: ED 12:38
DX: N39.0 Urinary tract infection, site not specified (principal); R51.9 Headache, unspecified; F03.C0 Unspecified dementia, severe, without behavioral disturbance, psychotic disturbance, mood disturbance, and anxiety; I10 Essential (primary) hypertension; Z79.899 Other long term (current) drug therapy; Z28.310 Unvaccinated for COVID-19
CPT/HCPCS: 36415; 70450; 80053; 81001; 83605; 84484; 85025; 85610; 85652; 87086; 93005; 99283